=== PATIENT | female | born 1990 ===

== ENCOUNTER 2019-03-28 20:57 | Inpatient (IN) | payer BC ==
[2019-03-28] MEDS ORDERED: Citric Acid/Sodium Citrate Solution 30 ML Cup PO ONE (22:23)
[2019-03-28] MEDS ORDERED: Sodium Chloride 0.9% 10 ML SDV IV PRN (22:23)
[2019-03-28] MEDS ORDERED: Sodium Chloride 0.9% 2.5 ML Syringe FLUSH PRN (22:23)
[2019-03-28] MEDS ORDERED: ceFAZolin 2 GM in Premix Bag 1 BAG IV ONE (22:23)
[2019-03-28] MEDS ORDERED: Sodium Chloride 0.9% 10 ML Syringe FLUSH PRN (22:23)
[2019-03-28] MEDS ORDERED: Oxytocin/0.9 % Sodium Chloride 30 UNIT/500 ML BAG IV SCH (22:30)
[2019-03-28] MEDS ORDERED: Morphine PF 10 MG/10 ML SDV ONE (22:39)
[2019-03-28] MEDS: Lactated Ringers 1,000 ML IV SCH ×2 (22:45→22:59)
--- NOTE | 2019-03-28 22:50 | PCM.PREANE ---
Preanesthetic Assessment - Anesthesia/Transfusion/Family Hx Anesthesia History: Prior Anesthesia Without Reaction Family History of Anesthesia Reaction: No - Physical Assessment NPO Status Date: 03/28/19 NPO Status Time: 18:00 Height: 1.65 m Weight: 82.554 kg ASA Class: 1E - Allergies Allergies/Adverse Reactions: Allergies Allergy/AdvReac Type Severity Reaction Status Date / Time Penicillins Allergy Hives Verified 03/27/19 21:49 - Acknowledgements Anesthesia Type Planned: Spinal Pt an Appropriate Candidate for the Planned Anesthesia: Yes Alternatives and Risks of Anesthesia Discussed w Pt/Guardian: Yes Pt/Guardian Understands and Agrees with Anesthesia Plan: Yes PreAnesthesia Questionnaire - HOME MEDS Home Medications: Home Meds Docosahexanoic Acid [DHA] 1 tab PO DAILY 03/27/19 [History] Pnv,Calcium 72/Iron/Folic Acid [M-Addison Plus Tablet] 1 tab PO DAILY 03/27/19 [ History] - CURRENT (IN HOUSE) MEDS Current Meds: Current Medications Cefazolin Sodium/Dextrose 2 gm (/ Premix) 50 mls @ 100 mls/hr IV ONETIME ONE Stop: 03/28/19 22:52 Lactated Ringer's (Ringers, Lactated) 1,000 mls @ 500 mls/hr IV BOLUS [facility] Last Admin: 03/28/19 22:45 Dose: 999 mls/hr Oxytocin/Sodium Chloride (Oxytocin 30 Unit/500 Ml-Ns) 30 unit in 500 mls @ 250 mls/hr IV TITRATE [facility] Sodium Chloride (Saline Flush) 10 ml FLUSH ASDIRECTED PRN PRN Reason: Keep Vein Open Sodium Chloride (Saline Flush) 2.5 ml FLUSH ASDIRECTED PRN PRN Reason: Keep Vein Open Sodium Chloride (Normal Saline) 10 ml IV ASDIRECTED PRN PRN Reason: IV Use Discontinued Medications Citric Acid/Sodium Citrate (Bicitra Solution) 30 ml PO ONETIME ONE Stop: 03/28/19 22:24 Morphine Sulfate (Duramorph Pf) Confirm Administered Dose 10 mg .ROUTE .STK-MED ONE Stop: 03/28/19 22:40
[2019-03-28] MEDS ORDERED: Ondansetron 4 MG/2 ML SDV ONE (22:52)
[2019-03-28] MEDS ORDERED: Phenylephrine/Normal Saline 100 MCG/ML 10 ML Syringe ONE (22:52)
[2019-03-28] MEDS ORDERED: Oxytocin 10 Units/1 ML SDV ONE (22:52)
[2019-03-28] MEDS ORDERED: Ketorolac 30 MG/ML SDV ONE (22:52)
[2019-03-29] MEDS ORDERED: Tranexamic Acid 1,000 MG in Sodium Chloride 0.9% 100 ML IV PRN (00:24)
[2019-03-29] MEDS ORDERED: Bisacodyl 10 MG Supp RECTAL PRN (00:24)
[2019-03-29] MEDS ORDERED: Oxytocin 10 Units/1 ML SDV IM PRN (00:24)
[2019-03-29] MEDS ORDERED: Lanolin 100% Cream 7 GM Tube TOP PRN (00:24)
[2019-03-29] MEDS ORDERED: diphenhydrAMINE 50 MG/ML SDV IVPUSH PRN (00:24)
[2019-03-29] MEDS ORDERED: Misoprostol 200 MCG Tab RECTAL PRN (00:24)
[2019-03-29] MEDS ORDERED: Ondansetron 4 MG/2 ML SDV IVPUSH PRN (00:24)
[2019-03-29] MEDS ORDERED: Methylergonovine 0.2 MG/1 ML Amp IM PRN (00:24)
[2019-03-29] MEDS ORDERED: Oxytocin/Lactated Ringers 30 UNIT/500 ML BAG IV SCH (00:30)
[2019-03-29] MEDS ORDERED: Lactated Ringers 1,000 ML IV SCH (00:30)
--- NOTE | 2019-03-29 00:31 | PCM.OPNOTE ---
- General Post-Op/Procedure Note Date of Surgery/Procedure: 03/29/19 Operative Procedure(s): Primary low-transverse section Findings: Live female , cephalic presentation, Apgars 7/9, weight 2790g. Placenta intact and with 3-vessel cord. Normal uterus, ovaries, and fallopian tubes. Pre Op Diagnosis: 28yo at 37w5d with spontaneous rupture of membranes. History of rectal prolapse repair Post-Op Diagnosis: 28yo at 37w5d with spontaneous rupture of membranes. History of rectal prolapse repair Anesthesia Technique: Spinal Primary Surgeon: Haven Melissa Anesthesia Provider: Raul Freeman Pathology: Placenta, cord blood, cord gases (not able to be run as not labeled) Fluid Replacement, Intraop: 2,300 Output, Urine Amount: 100 EBL in mLs: 600 Complications: None Condition: Good
[2019-03-29] MEDS ORDERED: Acetaminophen/oxyCODONE 325-5 MG Tab PO PRN (00:46)
--- NOTE | 2019-03-29 00:46 | PCM.POSTAN ---
POST ANESTHESIA ASSESSMENT - MENTAL STATUS Mental Status: Alert - RESPIRATORY Respiratory Status: Respiratory Rate WNL - CARDIOVASCULAR CV Status: Pulse Rate WNL - GASTROINTESTINAL GI Status: No Symptoms - POST OP HYDRATION Hydration Status: Adequate & Stable
[2019-03-29] MEDS: Ketorolac 30 MG/ML SDV IVPUSH SCH ×4 (02:58→18:13)
[2019-03-29] MEDS: Lactated Ringers 1,000 ML IV SCH (04:34)
--- NOTE | 2019-03-29 07:35 | OR ---
SURGEON: Haven Melissa MD DATE OF PROCEDURE: 03/28/2019 PREOPERATIVE DIAGNOSES: 1. 28-year-old, G1, P0, at 37 weeks and 5 days gestation with spontaneous rupture of membranes. 2. History of rectal prolapse repair. POSTOPERATIVE DIAGNOSES: 1. 28-year-old, G1, P0, at 37 weeks and 5 days gestation with spontaneous rupture of membranes. 2. History of rectal prolapse repair. PROCEDURE: Primary low transverse section. SURGEON: Haven Melissa MD ANESTHESIA: Spinal. ESTIMATED BLOOD LOSS: 600 mL. IV FLUIDS: 2300 mL of LR. URINE OUTPUT: 100 mL of clear yellow urine. FINDINGS: Live female infant in cephalic presentation. score 7 and 9 at one and five minutes respectively. Weight 2790 g. Placenta intact and with 3-vessel cord. Normal-appearing uterus, ovaries, and tubes. INDICATIONS: This is a 28-year-old, G1, P0, who presented at 37 weeks 5 days gestation complaining of contractions. Upon presentation, her cervix was found to be 2 to 3 cm dilated, which is the same as 24 hours previously. However, after checking her cervix, the patient reported leakage of fluid and spontaneous rupture of membranes was confirmed. The patient has a history of rectal prolapse repair and planned for elective primary section due to this repair. The decision was made to proceed with primary section for spontaneous rupture of membranes, and all risks and benefits were reviewed with the patient. DESCRIPTION OF PROCEDURE: The patient was taken to the operating room where spinal anesthesia was obtained. She was placed in the dorsal supine position with a leftward tilt. She was prepared and draped in normal sterile fashion. A Pfannenstiel skin incision was made with a scalpel and carried through to the underlying layer of fascia with the Bovie. The fascia was incised in the midline and the incision extended laterally with curved De León scissors. The superior aspect of the fascial incision was grasped with Magdalene clamps, elevated, and underlying rectus muscles dissected off bluntly with Bovie. In a similar fashion, the inferior aspect of the fascial incision was grasped with Magdalene clamps, elevated, and underlying rectus muscles dissected off bluntly and with Bovie. The peritoneum was identified in the midline and entered bluntly with a finger. The peritoneal incision was extended using manual retraction. An Angel retractor was placed. A bladder flap was created in the usual manner. A low transverse hysterotomy was performed. The hysterotomy was extended using manual traction. The 's arm delivered through the hysterotomy. This was replaced multiple times. A hand from below was used to assist in elevating the head out of the pelvis. With moderate difficulty, the head was delivered followed by the shoulders and the remainder of the body. Nose and mouth were suctioned with bulb suction. The cord was clamped and cut. The infant was handed off to the awaiting flame hardening machine operator. The placenta was removed using uterine massage and gentle cord traction. Cord gases and cord blood were obtained. The uterus was cleared of all clots and debris. The uterine incision was repaired with a running lock stitch of 0 Vicryl suture. A 2nd stitch of the same suture was used to obtain hemostasis. The fundus was firm. The hysterotomy was inspected and noted to be hemostatic. The Angel retractor was removed. The abdomen was cleared of all clots. The muscles were reapproximated with 3-0 Vicryl suture in a running fashion. The fascia was closed with 0 Vicryl suture in a running fashion. The subcutaneous tissue was irrigated and Bovie used to obtain hemostasis of the subcutaneous tissue. The skin was closed with 4-0 Monocryl in a subcuticular fashion. The incision was covered with Mastisol, Steri-Strips and a pressure dressing. The fundus was firm with minimal lochia. All sponge, lap, and needle counts were correct x3. The patient and tolerated the delivery well. 2 g of Ancef was given prior to incision. [id number] / MODL /[id number] NANO
--- NOTE | 2019-03-29 09:08 | PCM.PNPP ---
- General Info Date of Service: 03/29/19 Functional Status: Reports: Pain Controlled, Tolerating Diet - Review of Systems General: Reports: Fatigue. Denies: Fever, Weakness Pulmonary: Denies: Shortness of Breath Cardiovascular: Denies: Chest Pain, Palpitations, Lightheadedness Gastrointestinal: Reports: Abdominal Pain (minimal, well controlled incisional pain). Denies: Nausea, Vomiting Genitourinary: Reports: No Symptoms Musculoskeletal: Reports: No Symptoms Skin: Reports: No Symptoms Neurological: Reports: No Symptoms Psychiatric: Reports: No Symptoms - General Info Date of Service: 03/29/19 - Patient Data Vital Signs - Most Recent: Last Vital Signs Temp 36.5 C 03/29/19 05:00 Pulse 89 03/29/19 08:00 Resp 17 03/29/19 08:00 BP 115/66 03/29/19 05:00 Pulse Ox 99 03/29/19 08:00 Weight - Most Recent: 82.554 kg I&O - Last 24 Hours: Intake & Output 03/28/19 03/29/19 03/29/19 22:59 06:59 14:59 Intake Total 2920 Output Total 350 275 Balance 2570 -275 Lab Results - Last 24 Hours: Laboratory Results - last 24 hr 03/28/19 03/28/19 Range/Units 22:47 22:47 WBC 17.48 H (4.0-11.0) K/uL RBC 4.45 (4.30-5.90) M/uL Hgb 13.5 (12.0-16.0) g/dL Hct 40.6 (36.0-46.0) % MCV 91.2 (80.0-98.0) fL MCH 30.3 (27.0-32.0) pg MCHC 33.3 (31.0-37.0) g/dL RDW Std Deviation 45.4 (28.0-62.0) fl RDW Coeff of Tracey 14 (11.0-15.0) % Plt Count 182 (150-400) K/uL MPV 11.60 (7.40-12.00) fL Nucleated RBC % 0.0 /100WBC Nucleated RBCs # 0 K/uL Blood Type A POSITIVE Antibody Screen NEGATIVE Med Orders - Current: Current Medications Bisacodyl (Dulcolax) 10 mg RECTAL ONETIME PRN PRN Reason: Constipation Diphenhydramine HCl (Benadryl) 25 mg IVPUSH Q6H PRN PRN Reason: Itching or Nausea Docusate Sodium (Colace) 100 mg PO BID [facility] Emollient Ointment (Lansinoh Hpa) 0 gm TOP ASDIRECTED PRN PRN Reason: Sore Nipples Lactated Ringer's (Ringers, Lactated) 1,000 mls @ 500 mls/hr IV BOLUS [facility] Last Admin: 03/29/19 04:34 Dose: 999 mls/hr Oxytocin/Sodium Chloride (Oxytocin 30 Unit/500 Ml-Ns) 30 unit in 500 mls @ 250 mls/hr IV TITRATE [facility] Tranexamic Acid 1,000 mg/ (Sodium Chloride) 110 mls @ 660 mls/hr IV ONETIME PRN PRN Reason: Bleeding Lactated Ringer's (Ringers, Lactated) 1,000 mls @ 125 mls/hr IV ASDIRECTED [facility] Last Admin: 03/29/19 04:34 Dose: 125 mls/hr Oxytocin/Lactated Ringer's (Pitocin In Lr 30 Units/500 Ml) 30 unit in 500 mls @ 999 mls/hr IV TITRATE [facility]; Protocol Ibuprofen (Motrin) 800 mg PO Q8H PRN PRN Reason: mild pain or fever Ketorolac Tromethamine (Toradol) 30 mg IVPUSH Q6H [facility] Stop: 03/30/19 00:31 Last Admin: 03/29/19 06:48 Dose: 30 mg Methylergonovine Maleate (Methergine) 0.2 mg IM ONETIME PRN PRN Reason: Excessive Vaginal Bleeding Misoprostol (Cytotec) 1,000 mcg RECTAL ONETIME PRN PRN Reason: excessive bleeding Ondansetron HCl (Zofran) 4 mg IVPUSH Q4H PRN PRN Reason: Nausea/Vomiting Oxycodone/Acetaminophen (Percocet 325-5 Mg) 1 tab PO Q4H PRN PRN Reason: Pain (moderate 4-6) Oxycodone/Acetaminophen (Percocet 325-5 Mg) 2 tab PO Q4H PRN PRN Reason: Pain (moderate 4-6) Oxycodone/Acetaminophen (Percocet 325-5 Mg) 1 tab PO Q4H PRN PRN Reason: Pain (moderate 4-6) Oxytocin (Pitocin) 10 unit IM ASDIRECTED PRN PRN Reason: Excessive Vaginal Bleeding Sodium Chloride (Saline Flush) 10 ml FLUSH ASDIRECTED PRN PRN Reason: Keep Vein Open Sodium Chloride (Saline Flush) 2.5 ml FLUSH ASDIRECTED PRN PRN Reason: Keep Vein Open Sodium Chloride (Normal Saline) 10 ml IV ASDIRECTED PRN PRN Reason: IV Use Discontinued Medications Citric Acid/Sodium Citrate (Bicitra Solution) 30 ml PO ONETIME ONE Stop: 03/28/19 22:24 Last Admin: 03/28/19 22:52 Dose: 30 ml Cefazolin Sodium/Dextrose 2 gm (/ Premix) 50 mls @ 100 mls/hr IV ONETIME ONE Stop: 03/28/19 22:52 Last Admin: 03/29/19 03:19 Dose: Not Given Ketorolac Tromethamine (Toradol) Confirm Administered Dose 30 mg .ROUTE .STK- MED ONE Stop: 03/28/19 22:53 Morphine Sulfate (Duramorph Pf) Confirm Administered Dose 10 mg .ROUTE .STK-MED ONE Stop: 03/28/19 22:40 Ondansetron HCl (Zofran) Confirm Administered Dose 4 mg .ROUTE .STK-MED ONE Stop: 03/28/19 22:53 Oxytocin (Pitocin) Confirm Administered Dose 20 unit .ROUTE .STK-MED ONE Stop: 03/28/19 22:53 Phenylephrine HCl (Phenylephrine In Ns 100 Mcg/Ml) Confirm Administered Dose 1 mg .ROUTE .STK-MED ONE Stop: 03/28/19 22:53 - Infant Interaction Support Person: - Recovery Exam Fundal Tone: Firm Fundal Level: At Umbilicus Fundal Placement: Midline Lochia Amount: Small Lochia Color: Rubra/Red Perineum Description: Intact, Minimal Bruising/Swelling Episiotomy/Laceration: None Bladder Status: Indwelling Catheter in Place Urinary Elimination: Indwelling Catheter - Exam General: Alert, Oriented Lungs: Normal Respiratory Effort Cardiovascular: Regular Rate, Regular Rhythm GI/Abdominal Exam: Normal Bowel Sounds, Soft Extremities: Pedal Edema (trace). No: Juliette's Sign Skin: Warm, Dry, Intact Wound/Incisions: Dressing Dry and Intact Neurological: No New Focal Deficit Psy/Mental Status: Alert, Normal Affect, Normal Mood - Problem List & Annotations (1) Status post section SNOMED Code(s): 242751395, 841143709 Code(s): Z98.891 - HISTORY OF UTERINE SCAR FROM PREVIOUS SURGERY Status: Acute Current Visit: Yes - Problem List Review Problem List Initiated/Reviewed/Updated: Yes - Assessment Assessment:: POD 0 status post Primary LTCS - Plan Plan:: Continue postoperative cares. VS are stable.
[2019-03-29] MEDS: Docusate Sodium 100 MG Cap PO SCH ×2 (09:50→20:45)
--- NOTE | 2019-03-29 10:46 | PCM48HPAN ---
Post Anesthesia Note - EVALUATION WITHIN 48HRS OF ANESTHETIC Vital Signs in Normal Range: Yes Patient Participated in Evaluation: Yes Respiratory Function Stable: Yes Airway Patent: Yes Cardiovascular Function Stable: Yes Hydration Status Stable: Yes Pain Control Satisfactory: Yes Nausea and Vomiting Control Satisfactory: Yes Mental Status Recovered: Yes Vital Signs: Last Vital Signs Temp 37.2 C 03/29/19 08:00 Pulse 93 03/29/19 09:00 Resp 17 03/29/19 09:00 BP 117/72 03/29/19 08:00 Pulse Ox 100 03/29/19 09:00
[2019-03-30] MEDS: Ketorolac 30 MG/ML SDV IVPUSH SCH ×2 (00:22→00:40)
[2019-03-30] MEDS: Acetaminophen/oxyCODONE 325-5 MG Tab PO PRN ×5 (00:48→21:09)
[2019-03-30] MEDS ORDERED: Ibuprofen 800 MG Tab PO PRN (06:30)
--- NOTE | 2019-03-30 07:15 | PCM.PNPP ---
- General Info Date of Service: 03/30/19 Functional Status: Reports: Pain Controlled, Tolerating Diet, Ambulating, Urinating - Review of Systems General: Denies: Fever, Weakness, Fatigue Pulmonary: Denies: Shortness of Breath Cardiovascular: Denies: Chest Pain, Palpitations, Lightheadedness Gastrointestinal: Denies: Abdominal Pain, Nausea, Vomiting Genitourinary: Denies: Flank Pain Musculoskeletal: Reports: No Symptoms Skin: Reports: No Symptoms Neurological: Reports: No Symptoms Psychiatric: Reports: No Symptoms - General Info Date of Service: 03/30/19 - Patient Data Vital Signs - Most Recent: Last Vital Signs Temp 36.7 C 03/30/19 04:00 Pulse 94 03/30/19 04:00 Resp 17 03/30/19 04:00 BP 119/75 03/30/19 04:00 Pulse Ox 99 03/30/19 04:00 Weight - Most Recent: 82.554 kg I&O - Last 24 Hours: Intake & Output 03/29/19 03/30/19 03/30/19 22:59 06:59 14:59 Output Total 1999 Balance -1999 Lab Results - Last 24 Hours: Laboratory Results - last 24 hr 03/30/19 Range/Units 05:49 Hgb 11.9 L (12.0-16.0) g/dL Hct 36.5 (36.0-46.0) % Med Orders - Current: Current Medications Bisacodyl (Dulcolax) 10 mg RECTAL ONETIME PRN PRN Reason: Constipation Diphenhydramine HCl (Benadryl) 25 mg IVPUSH Q6H PRN PRN Reason: Itching or Nausea Docusate Sodium (Colace) 100 mg PO BID [facility] Last Admin: 03/29/19 20:45 Dose: 100 mg Emollient Ointment (Lansinoh Hpa) 0 gm TOP ASDIRECTED PRN PRN Reason: Sore Nipples Lactated Ringer's (Ringers, Lactated) 1,000 mls @ 500 mls/hr IV BOLUS [facility] Last Admin: 03/29/19 04:34 Dose: 999 mls/hr Oxytocin/Sodium Chloride (Oxytocin 30 Unit/500 Ml-Ns) 30 unit in 500 mls @ 250 mls/hr IV TITRATE [facility] Tranexamic Acid 1,000 mg/ (Sodium Chloride) 110 mls @ 660 mls/hr IV ONETIME PRN PRN Reason: Bleeding Lactated Ringer's (Ringers, Lactated) 1,000 mls @ 125 mls/hr IV ASDIRECTED [facility] Last Admin: 03/29/19 04:34 Dose: 125 mls/hr Oxytocin/Lactated Ringer's (Pitocin In Lr 30 Units/500 Ml) 30 unit in 500 mls @ 999 mls/hr IV TITRATE [facility]; Protocol Ibuprofen (Motrin) 800 mg PO Q8H PRN PRN Reason: mild pain or fever Methylergonovine Maleate (Methergine) 0.2 mg IM ONETIME PRN PRN Reason: Excessive Vaginal Bleeding Misoprostol (Cytotec) 1,000 mcg RECTAL ONETIME PRN PRN Reason: excessive bleeding Ondansetron HCl (Zofran) 4 mg IVPUSH Q4H PRN PRN Reason: Nausea/Vomiting Oxycodone/Acetaminophen (Percocet 325-5 Mg) 1 tab PO Q4H PRN PRN Reason: Pain (moderate 4-6) Oxycodone/Acetaminophen (Percocet 325-5 Mg) 2 tab PO Q4H PRN PRN Reason: Pain (moderate 4-6) Last Admin: 03/30/19 05:46 Dose: 2 tab Oxycodone/Acetaminophen (Percocet 325-5 Mg) 1 tab PO Q4H PRN PRN Reason: Pain (moderate 4-6) Oxytocin (Pitocin) 10 unit IM ASDIRECTED PRN PRN Reason: Excessive Vaginal Bleeding Sodium Chloride (Saline Flush) 10 ml FLUSH ASDIRECTED PRN PRN Reason: Keep Vein Open Last Admin: 03/30/19 00:24 Dose: 10 ml Sodium Chloride (Saline Flush) 2.5 ml FLUSH ASDIRECTED PRN PRN Reason: Keep Vein Open Sodium Chloride (Normal Saline) 10 ml IV ASDIRECTED PRN PRN Reason: IV Use Discontinued Medications Citric Acid/Sodium Citrate (Bicitra Solution) 30 ml PO ONETIME ONE Stop: 03/28/19 22:24 Last Admin: 03/28/19 22:52 Dose: 30 ml Cefazolin Sodium/Dextrose 2 gm (/ Premix) 50 mls @ 100 mls/hr IV ONETIME ONE Stop: 03/28/19 22:52 Last Admin: 03/29/19 03:19 Dose: Not Given Ketorolac Tromethamine (Toradol) Confirm Administered Dose 30 mg .ROUTE .STK- MED ONE Stop: 03/28/19 22:53 Ketorolac Tromethamine (Toradol) 30 mg IVPUSH Q6H [facility] Stop: 03/30/19 00:31 Last Admin: 03/30/19 00:40 Dose: Not Given Morphine Sulfate (Duramorph Pf) Confirm Administered Dose 10 mg .ROUTE .STK-MED ONE Stop: 03/28/19 22:40 Ondansetron HCl (Zofran) Confirm Administered Dose 4 mg .ROUTE .STK-MED ONE Stop: 03/28/19 22:53 Oxytocin (Pitocin) Confirm Administered Dose 20 unit .ROUTE .STK-MED ONE Stop: 03/28/19 22:53 Phenylephrine HCl (Phenylephrine In Ns 100 Mcg/Ml) Confirm Administered Dose 1 mg .ROUTE .STK-MED ONE Stop: 03/28/19 22:53 - Interaction Support Person: - Recovery Exam Fundal Tone: Firm Fundal Level: 1 Fingerbreadths Below Umbilicus Fundal Placement: Midline Lochia Amount: Scant Lochia Color: Rubra/Red Perineum Description: Intact, Minimal Bruising/Swelling Episiotomy/Laceration: None Bladder Status: Voiding Urinary Elimination: Voided - Exam General: Alert, Oriented Lungs: Normal Respiratory Effort Cardiovascular: Regular Rate, Regular Rhythm GI/Abdominal Exam: Normal Bowel Sounds, Soft Skin: Warm, Dry, Intact Wound/Incisions: No Drainage. No: Erythema Neurological: No New Focal Deficit Psy/Mental Status: Alert, Normal Affect, Normal Mood - Problem List & Annotations (1) Status post section SNOMED Code(s): 531255763, [id number] Code(s): Z98.891 - HISTORY OF UTERINE SCAR FROM PREVIOUS SURGERY Status: Acute Current Visit: Yes - Problem List Review Problem List Initiated/Reviewed/Updated: Yes - Assessment Assessment:: POD 1 status post Primary LTCS - Plan Plan:: Continue postoperative cares. VS are stable. Patient is feeling well overall. She may want to go home later today. Discharge instructions reviewed. Follow up at [facility] 2 and 6 weeks. However, encouraged to stay until tomorrow if has any concerns or issue with feeding at all.
[2019-03-30] MEDS: Docusate Sodium 100 MG Cap PO SCH ×2 (09:56→21:09)
[2019-03-31] MEDS: Acetaminophen/oxyCODONE 325-5 MG Tab PO PRN ×3 (05:21→13:06)
[2019-03-31] MEDS: Docusate Sodium 100 MG Cap PO SCH (09:16)
[2019-03-31] MEDS ORDERED: predniSONE 10 MG Tab PO ONE (11:45)
--- NOTE | 2019-03-31 12:04 | PCM.PNPP ---
- General Info Date of Service: 03/31/19 Subjective Update: 28 yo PPD 1 s/p primary . She is ambulating voiding and tolerating regular diet Patient developed a maculopapular with some small vesicular eruption. on the abdomen , and gluteal region. She states she had this kind of rash after her rectal surgery . Functional Status: Reports: Pain Controlled, Tolerating Diet, Ambulating, Urinating - Review of Systems General: Reports: No Symptoms HEENT: Reports: No Symptoms Pulmonary: Reports: No Symptoms Cardiovascular: Reports: No Symptoms Gastrointestinal: Reports: No Symptoms Genitourinary: Reports: No Symptoms Musculoskeletal: Reports: No Symptoms Skin: Reports: No Symptoms Neurological: Reports: No Symptoms Psychiatric: Reports: No Symptoms - General Info Date of Service: 03/31/19 - Patient Data Vital Signs - Most Recent: Last Vital Signs Temp 36.2 C 03/31/19 07:45 Pulse 83 03/31/19 07:45 Resp 17 03/31/19 07:45 BP 109/75 03/31/19 07:45 Pulse Ox 98 03/31/19 07:45 Weight - Most Recent: 82.554 kg Med Orders - Current: Current Medications Bisacodyl (Dulcolax) 10 mg RECTAL ONETIME PRN PRN Reason: Constipation Diphenhydramine HCl (Benadryl) 25 mg IVPUSH Q6H PRN PRN Reason: Itching or Nausea Docusate Sodium (Colace) 100 mg PO BID [facility] Last Admin: 03/31/19 09:16 Dose: 100 mg Emollient Ointment (Lansinoh Hpa) 0 gm TOP ASDIRECTED PRN PRN Reason: Sore Nipples Lactated Ringer's (Ringers, Lactated) 1,000 mls @ 500 mls/hr IV BOLUS [facility] Last Admin: 03/29/19 04:34 Dose: 999 mls/hr Oxytocin/Sodium Chloride (Oxytocin 30 Unit/500 Ml-Ns) 30 unit in 500 mls @ 250 mls/hr IV TITRATE [facility] Tranexamic Acid 1,000 mg/ (Sodium Chloride) 110 mls @ 660 mls/hr IV ONETIME PRN PRN Reason: Bleeding Lactated Ringer's (Ringers, Lactated) 1,000 mls @ 125 mls/hr IV ASDIRECTED [facility] Last Admin: 03/29/19 04:34 Dose: 125 mls/hr Oxytocin/Lactated Ringer's (Pitocin In Lr 30 Units/500 Ml) 30 unit in 500 mls @ 999 mls/hr IV TITRATE [facility]; Protocol Ibuprofen (Motrin) 800 mg PO Q8H PRN PRN Reason: mild pain or fever Methylergonovine Maleate (Methergine) 0.2 mg IM ONETIME PRN PRN Reason: Excessive Vaginal Bleeding Misoprostol (Cytotec) 1,000 mcg RECTAL ONETIME PRN PRN Reason: excessive bleeding Ondansetron HCl (Zofran) 4 mg IVPUSH Q4H PRN PRN Reason: Nausea/Vomiting Oxycodone/Acetaminophen (Percocet 325-5 Mg) 1 tab PO Q4H PRN PRN Reason: Pain (moderate 4-6) Last Admin: 03/31/19 09:16 Dose: 1 tab Oxycodone/Acetaminophen (Percocet 325-5 Mg) 2 tab PO Q4H PRN PRN Reason: Pain (moderate 4-6) Last Admin: 03/30/19 21:09 Dose: 2 tab Oxycodone/Acetaminophen (Percocet 325-5 Mg) 1 tab PO Q4H PRN PRN Reason: Pain (moderate 4-6) Oxytocin (Pitocin) 10 unit IM ASDIRECTED PRN PRN Reason: Excessive Vaginal Bleeding Sodium Chloride (Saline Flush) 10 ml FLUSH ASDIRECTED PRN PRN Reason: Keep Vein Open Last Admin: 03/30/19 00:24 Dose: 10 ml Sodium Chloride (Saline Flush) 2.5 ml FLUSH ASDIRECTED PRN PRN Reason: Keep Vein Open Sodium Chloride (Normal Saline) 10 ml IV ASDIRECTED PRN PRN Reason: IV Use Discontinued Medications Citric Acid/Sodium Citrate (Bicitra Solution) 30 ml PO ONETIME ONE Stop: 03/28/19 22:24 Last Admin: 03/28/19 22:52 Dose: 30 ml Cefazolin Sodium/Dextrose 2 gm (/ Premix) 50 mls @ 100 mls/hr IV ONETIME ONE Stop: 03/28/19 22:52 Last Admin: 03/29/19 03:19 Dose: Not Given Ketorolac Tromethamine (Toradol) Confirm Administered Dose 30 mg .ROUTE .STK- MED ONE Stop: 03/28/19 22:53 Ketorolac Tromethamine (Toradol) 30 mg IVPUSH Q6H [facility] Stop: 03/30/19 00:31 Last Admin: 03/30/19 00:40 Dose: Not Given Morphine Sulfate (Duramorph Pf) Confirm Administered Dose 10 mg .ROUTE .STK-MED ONE Stop: 03/28/19 22:40 Ondansetron HCl (Zofran) Confirm Administered Dose 4 mg .ROUTE .STK-MED ONE Stop: 03/28/19 22:53 Oxytocin (Pitocin) Confirm Administered Dose 20 unit .ROUTE .STK-MED ONE Stop: 03/28/19 22:53 Phenylephrine HCl (Phenylephrine In Ns 100 Mcg/Ml) Confirm Administered Dose 1 mg .ROUTE .STK-MED ONE Stop: 03/28/19 22:53 Prednisone (Prednisone) 10 mg PO DAILY ONE Stop: 03/31/19 11:46 - Infant Interaction Support Person: - Recovery Exam Fundal Tone: Firm Fundal Level: 1 Fingerbreadths Below Umbilicus Fundal Placement: Midline Lochia Amount: Scant Lochia Color: Rubra/Red Perineum Description: Intact, Minimal Bruising/Swelling Episiotomy/Laceration: None Bladder Status: Voiding Urinary Elimination: Voided - Exam General: Alert Neck: Supple Lungs: Clear to Auscultation Cardiovascular: Regular Rate, Regular Rhythm GI/Abdominal Exam: Normal Bowel Sounds, Other (maculopapular rash around abdomen to extending from umbilicus to pfannestiel incision ) Extremities: Normal Inspection Wound/Incisions: Other (3 vesicular eruption around the incision ) Neurological: No New Focal Deficit Psy/Mental Status: Alert - Problem List & Annotations (1) Status post section SNOMED Code(s): 085959436, [id number] Code(s): Z98.891 - HISTORY OF UTERINE SCAR FROM PREVIOUS SURGERY Status: Acute Current Visit: Yes - Problem List Review Problem List Initiated/Reviewed/Updated: Yes - My Orders Last 24 Hours: My Active Orders 03/31/19 11:56 Ready for Discharge [RC] PER UNIT ROUTINE - Assessment Assessment:: 28yo P1 POD 2 s/p primary Allergic rash - Plan Plan:: Continue postoperative cares. VS are stable. Discharge home today Monitor rash Prednisone for 3 days Remove steristrips as this may be reason for rash .
== END 2019-03-31 13:30 | disposition home or self-care (01) | DRG 540 ==
LOC: MW.OBCHECK 20:57 → MW.OB 20:58 → MW.OBCHECK 22:23 → MW.OB 03-29 05:15
PROVIDERS: ADMIT Obstetrics & Gynecology; ATTEND Obstetrics & Gynecology
PROC: 10D00Z1 Extraction of Products of Conception, Low, Open Approach (ICD-10-PCS; principal; 2019-03-28)
DX: O99.72 Diseases of the skin and subcutaneous tissue complicating childbirth (principal); Z3A.37 37 weeks gestation of pregnancy; Z37.0 Single live birth; Z88.0 Allergy status to penicillin; Z91.018 Allergy to other foods; R21 Rash and other nonspecific skin eruption
CPT/HCPCS: 01961; 36415; 51702; 59025; 85014; 85018; 85027; 86850; 86900; 86901; 88307; A9270-GY; J1885; J2270; J2370; J2405; J2590; J7120